=== PATIENT | female | born 1975 | race Hispanic/Latino ===

== ENCOUNTER 2016-12-21 20:15 | Emergency (ER) | payer OTHER ==
[2016-12-21] MEDS ORDERED: ONDANSETRON 4 MG ORAL DISINTEGRATING TAB (S0181) As Ordered ONE (21:04)
[2016-12-21 21:22] LABS: BASO % 0.2 % (0.0-1.0); EOS # 0.1 K/mm3 (0.0-0.50); EOS % 1.4 % (0.0-3.0); LARGE UNSTAINED CELL # 0.1 K/mm3 (0.0-0.4); LYMPH # 0.5 K/mm3 (1.5-4.5); LYMPH % 8.7 % (24.0-44.0); MEAN CORPUSCULAR HGB CONC 34.8 g/dl (32.0-36.5); MEAN CORPUSCULAR VOLUME 86.1 fl (80.0-96.0); MONO # 0.2 K/mm3 (0.0-0.8); MONO % 3.4 % (0.0-5.0); NEUTROPHILS # 4.9 K/mm3 (1.8-7.7); NEUTROPHILS % 85.4 % (36.0-66.0); PLATELET COUNT, AUTOMATED 268 k/mm3 (150-450); RED CELL DISTRIBUTION WIDTH 12.3 % (11.5-14.5); WHITE BLOOD COUNT 5.7 K/mm3 (4.0-10.0)
[2016-12-21 21:37] LABS: ANION GAP 9 MEQ/L (8-16); BLOOD UREA NITROGEN 7 MG/DL (7-18); CALCIUM LEVEL 8.8 MG/DL (8.5-10.1); CARBON DIOXIDE LEVEL 24 MEQ/L (21-32); CHLORIDE LEVEL 106 MEQ/L (98-107); CREATININE FOR GFR 0.73 MG/DL (0.55-1.02); GLOMERULAR FILTRATION RATE > 60.0 (>58); GLUCOSE, FASTING 98 MG/DL (70-105); POTASSIUM SERUM 4.1 MEQ/L (3.5-5.1); SODIUM LEVEL 139 MEQ/L (136-145)
--- NOTE | 2016-12-21 22:00 | REPUSA ---
Clinical history: Pain, swelling. Findings: The right common femoral, superficial femoral, popliteal, and other deep venous structures compress normally and demonstrate normal color Doppler flow. Normal venous waveforms with augmentatio n are seen. Impression: No evidence of deep vein thrombosis in the right femoral popliteal venous system.
--- NOTE | 2016-12-21 22:18 | EDDOCDS ---
Nurse's Notes [facility] Name: Melvina Vidal Age: 41 yrs Sex: Female : 1975 Arrival Date: 12/21/2016 Time: 20:15 Bed TR7 Private MD: Philip [facility] Diagnosis: Diarrhea, unspecified;Pain in right leg-MYOFASCIAL STRAIN Presentation: 12/21 20:23 Presenting complaint: Patient states: Diarrhea that began today with intermittent lf1 abdominal cramps and leg pain that is currently 7/10. Pt reports that she had feelings of nausea and took pepto and that has since resolved. Adult Sepsis Screening: The patient does not have new or worsening altered mentation. Patient's respiratory rate is less than 22. Systolic blood pressure is greater than 100. Patient has a qSOFA score of 0- Negative Sepsis Screen. Suicide/Homicide risk assessment- the patient denies having any suicidal and/or homicidal ideations and does not present with any other emotional, behavioral or mental health complaints. Status: The patient is a dependent. Transition of care: patient was not received from another setting of care. 20:23 Acuity: GET Level 4 lf1 20:23 Method Of Arrival: Walkin/Carried/Asstd lf1 Triage Assessment: 20:27 General: Appears in no apparent distress, comfortable, Behavior is cooperative. Pain: lf1 Location: right femoral area and right hip Pain currently is 7 out of 10 on a pain scale. Pain radiates to right leg. HIV screening NA for this visit Offered previously. Neurological: Level of Consciousness is awake, alert, Oriented to person, place, time. EENT: No deficits noted. Cardiovascular: Chest pain is denied. Respiratory: Respiratory effort is even, unlabored. GI: Reports diarrhea, nausea. : Denies burning with urination, urinary frequency, vaginal bleeding. Derm: Skin is normal. Injury Description: No known injury. 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 multivitamin Oral cap - PMHx: uterine fibroids; - PSHx: Tubal ligation; - Social history: Smoking status: Patient states was never smoker of tobacco. No barriers to communication noted, The patient speaks fluent Sinhala, Speaks appropriately for age, Preferred Language: Sinhala. - Family history: Not pertinent. - : The pt / caregiver states he / she is not on anticoagulants. Home medication list is obtained from the patient. - Exposure Risk Screening:: None identified. Screenin:29 Screening information is obtained from the patient. Fall risk: No risks identified. lf1 Assistance ADL's: requires no assistance with activities of daily living. Abuse/DV Screen: The patient / caregiver reports he/she is: not in a situation that causes fear, pain or injury. Nutritional screening: No deficits noted. Advance Directives: Currently, there is no health care proxy. home support is adequate. Assessment: 22:15 Reassessment: Patient appears in no apparent distress at this time. Patient states cz symptoms have improved. Vital Signs: 20:16 BP 120 / 63; Pulse 112; Resp 16; Temp 100.7(O); Pulse Ox 100% ; Weight 62.6 kg (R); lr2 Height 5 ft. (152.40 cm) (R); Pain 7/10; 22:13 BP 136 / 77; Pulse 99; Resp 18; Temp 100.3(TE); Pulse Ox 97% on R/A; Pain 7/10; ar3 20:16 Body Mass Index 26.95 (62.60 kg, 152.40 cm) lr2 Vitals: 20:16 Log In Time: December 21, 2016 at 20:15. lr2 ED Course: 20:16 Patient visited by Maria Eugenia Stephens. lr2 20:16 Patient moved to Waiting lr2 20:18 CHARO Palacios is Private Physician. lr2 20:18 Patient moved to Pre RCE lr2 20:26 Triage Initiated lf1 20:29 Patient moved to Triage 3 cz 20:30 Patient moved to Pre RCE cz 20:38 Patient moved to Triage 3 cz 20:54 [facility] Johnston [facility]-C [facility] ck7 20:54 Kelby Painter DO is Attending Physician. ck7 20:54 Patient visited by Emery Johnston RPA-C. ck7 21:08 Patient moved to TR1 ar3 21:08 Urine Culture Sent. ar3 21:08 UA Sent. ar3 21:08 MED Profile Sent. ar3 21:08 CBC with Diff Sent. ar3 21:13 Patient visited by Gayla Potter PCA. ar3 21:20 Patient moved to Ultrasound dmg 21:47 Patient moved to TR1 dmg 22:04 [facility] Payment Agreement was scanned into [employer] and attached to record. gjb 22:05 Patient visited by Emery Johnston RPA-C. ck7 22:[address] [facility] is Referral Physician. ck7 22:10 Patient moved to PR1 / 25 ar3 22:14 Patient visited by Gayla Potter PCA. ar3 22:15 Patient moved to TR7 cz 22:15 The patient / caregiver is instructed regarding the plan of care and ED course. cz 22:15 No IV's were initiated during this patient's visit. No procedures done that require cz assistance. Administered Medications: 21:06 Drug: Ondansetron ODT 4 mg [ondansetron 4 mg disintegrating tablet (1 tabs)] Route: PO; dsf Point of Care Testing: Urine : 21:13 hCG Reading: Negative; Control Reading: Positive; ar3 Ranges: Order Results: Lab Order: CBC with Diff; SPEC'M 12/21/16 21:08 Test: WHITE BLOOD COUNT; Value: 5.7; Range: 4.0-10.0; Units: K/mm3; Status: F Test: RED BLOOD COUNT; Value: 4.88; Range: 4.00-5.40; Units: M/mm3; Status: F Test: HEMOGLOBIN; Value: 14.6; Range: 12.0-16.0; Units: g/dl; Status: F Test: HEMATOCRIT; Value: 42.1; Range: 36.0-47.0; Units: %; Status: F Test: MEAN CORPUSCULAR VOLUME; Value: 86.1; Range: 80.0-96.0; Units: fl; Status: F Test: MEAN CORPUSCULAR HEMOGLOBIN; Value: 30.0; Range: 27.0-33.0; Units: pg; Status: F Test: MEAN CORPUSCULAR HGB CONC; Value: 34.8; Range: 32.0-36.5; Units: g/dl; Status: F Test: RED CELL DISTRIBUTION WIDTH; Value: 12.3; Range: 11.5-14.5; Units: %; Status: F Test: PLATELET COUNT, AUTOMATED; Value: 268; Range: 150-450; Units: k/mm3; Status: F Test: NEUTROPHILS %; Value: 85.4; Range: 36.0-66.0; Abnormal: Above high normal; Units: %; Status: F Test: LYMPH %; Value: 8.7; Range: 24.0-44.0; Abnormal: Below low normal; Units: %; Status: F Test: MONO %; Value: 3.4; Range: 0.0-5.0; Units: %; Status: F Test: EOS %; Value: 1.4; Range: 0.0-3.0; Units: %; Status: F Test: BASO %; Value: 0.2; Range: 0.0-1.0; Units: %; Status: F Test: LARGE UNSTAINED CELL %; Value: 1.0; Range: 0.0-4.0; Units: %; Status: F Test: NEUTROPHILS #; Value: 4.9; Range: 1.8-7.7; Units: K/mm3; Status: F Test: LYMPH #; Value: 0.5; Range: 1.5-4.5; Abnormal: Below low normal; Units: K/mm3; Status: F Test: MONO #; Value: 0.2; Range: 0.0-0.8; Units: K/mm3; Status: F Test: EOS #; Value: 0.1; Range: 0.0-0.50; Units: K/mm3; Status: F Test: BASO #; Value: 0.0; Range: 0.0-0.2; Units: K/mm3; Status: F Test: LARGE UNSTAINED CELL #; Value: 0.1; Range: 0.0-0.4; Units: K/mm3; Status: F Lab Order: MED Profile; SPECM 12/21/16 21:08 Test: GLUCOSE, FASTING; Value: 98; Range: 70-105; Units: MG/DL; Status: F Test: BLOOD UREA NITROGEN; Value: 7; Range: 7-18; Units: MG/DL; Status: F Test: CREATININE FOR GFR; Value: 0.73; Range: 0.55-1.02; Units: MG/DL; Status: F Test: GLOMERULAR FILTRATION RATE; Value: > 60.0; Range: >58; Status: F Test: SODIUM LEVEL; Value: 139; Range: 136-145; Units: MEQ/L; Status: F Test: POTASSIUM SERUM; Value: 4.1; Range: 3.5-5.1; Units: MEQ/L; Status: F Test: CHLORIDE LEVEL; Value: 106; Range: 98-107; Units: MEQ/L; Status: F Test: CARBON DIOXIDE LEVEL; Value: 24; Range: 21-32; Units: MEQ/L; Status: F Test: ANION GAP; Value: 9; Range: 8-16; Units: MEQ/L; Status: F Test: CALCIUM LEVEL; Value: 8.8; Range: 8.5-10.1; Units: MG/DL; Status: F Test Note: ; Units are mL/min/1.73 m2 Chronic Kidney Disease Staging per NKF: Stage I & II GFR >=60 Normal to Mildly Decreased Stage III GFR 30-59 Moderately Decreased Stage IV GFR 15-29 Severely Decreased Stage V GFR <15 Very Little GFR Left ESRD GFR <15 on VIDEO SOFTWARE ENGINEER Lab Order: UA; SPEC'M 12/21/16 21:03 Test: APPEARANCE, URINE; Value: CLEAR; Range: CLEAR; Status: F Test: COLOR, URINE; Value: YELLOW; Range: YELLOW; Status: F Test: PH,URINE; Value: 6.0; Range: 5.0-9.0; Units: UNITS; Status: F Test: SPECIFIC GRAVITY URINE AUTO; Value: 1.016; Range: 1.002-1.035; Status: F Test: PROTEIN, URINE AUTO; Value: NEGATIVE; Range: NEGATIVE; Units: mg/dL; Status: F Test: GLUCOSE, URINE (UA) AUTO; Value: NEGATIVE; Range: NEGATIVE; Units: mg/dL; Status: F Test: KETONE, URINE AUTO; Value: NEGATIVE; Range: NEGATIVE; Units: mg/dL; Status: F Test: UROBILINOGEN, URINE AUTO; Value: 0.2; Range: 0.0-2.0; Units: mg/dL; Status: F Test: BILIRUBIN, URINE AUTO; Value: NEGATIVE; Range: NEGATIVE; Status: F Test: NITRITE, URINE AUTO; Value: NEGATIVE; Range: NEGATIVE; Status: F Test: LEUKOCYTE ESTERASE, URINE AUTO; Value: TRACE; Range: NEGATIVE; Abnormal: Above high normal; Status: F Test: BLOOD, URINE BLOOD; Value: NEGATIVE; Range: NEGATIVE; Status: F Test: WBC, URINE AUTO; Value: 2; Range: 0-3; Units: /HPF; Status: F Test: RBC, URINE AUTO; Value: 2; Range: 0-3; Units: /HPF; Status: F Test: BACTERIA, URINE AUTO; Value: 1+; Range: NEGATIVE; Abnormal: Above high normal; Status: F Test: SQUAMOUS EPITHELIAL CELL UR AU; Value: 3; Range: 0-6; Units: /HPF; Status: F Test: MUCUS, URINE; Value: SMALL; Range: NEGATIVE; Status: F Test: HYALINE CAST, URINE AUTO; Value: 0; Range: 0-1; Units: /LPF; Status: F Outcome: 22:10 Discharge ordered by Provider. ck7 22:15 Discharge Assessment: Patient awake, alert and oriented x 3. No cognitive and/or cz functional deficits noted. Patient verbalized understanding of disposition instructions. patient administered narcotics - no. The following High Risk Discharge criteria are identified: None. Discharged to home ambulatory, with friend. Condition: stable. Discharge instructions given to patient, Instructed on discharge instructions, follow up and referral plans. medication usage, Demonstrated understanding of instructions, medications, Pt was receptive of discharge instructions/ teaching. Prescriptions given X 1. Property :Personal belongings accompany Pt. 22:16 Ultrasound Study completed. cz 22:16 Patient left the ED. cz Signatures: Harlan Zepeda RN RN Rowan Taylor LisaRN RN lf1 Gayla Potter, COIL WINDER COIL WINDER ar3 Roma Vargas,RN RN laurenf Emery Johnston, RPA-C RPA-Cck7 Mariana Schmitz Laura lr2 MTDD
--- NOTE | 2016-12-21 22:18 | EDDOCDS ---
Physician Documentation [facility] Name: Melvina Vidal Age: 41 yrs Sex: Female : 1975 Arrival Date: 12/21/2016 Time: 20:15 Bed TR7 Private MD: CHARO Palacios Disposition: 12/21/16 22:10 Discharged to Home/Self Care. Impression: Diarrhea, unspecified, Pain in right leg - MYOFASCIAL STRAIN. - Condition is Stable. - Discharge Instructions: Food Choices to Help Relieve Diarrhea, Adult, Diarrhea, Clear Liquid Diet, Muscle Strain. - Prescriptions for ZOFRAN ODT 4 mg - dissolve 1 tablet by ORAL route 4 times per day As needed do not chew, do not swallow whole; 10 tablet. - Medication Reconciliation, Local Pharmacy Hours form. - Follow up: CHARO Palacios; When: 1 - 2 days; Reason: Recheck today's complaints, Continuance of care. - Problem is new. - Symptoms have improved. - Notes: USE TYLENOL OR MOTRIN FOR LEG PAIN, RETURN TO THE ER IF THE SYMPTOMS WORSEN OR BECOME CONCERNING, FOLLOW UP WITH YOUR DOCTOR IN THE NEXT 2 DAYS Historical: - Allergies: PENICILLINS (Anaphylaxis, Hives); - Home Meds: 1. multivitamin Oral cap - PMHx: uterine fibroids; - PSHx: Tubal ligation; - Social history: Smoking status: Patient states was never smoker of tobacco. No barriers to communication noted, The patient speaks fluent Kinyarwanda, Speaks appropriately for age, Preferred Language: Kinyarwanda. - Family history: Not pertinent. - : The pt / caregiver states he / she is not on anticoagulants. Home medication list is obtained from the patient. - Exposure Risk Screening:: None identified. 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 (152.40 cm) (R); Pain 7/10; 22:13 BP 136 / 77; Pulse 99; Resp 18; Temp 100.3(TE); Pulse Ox 97% on R/A; Pain 7/10; ar3 20:16 Body Mass Index 26.95 (62.60 kg, 152.40 cm) lr2 MDM: 21:00 Ondansetron ODT Oral Disintegrating Tablet 4 mg PO once ordered. ck7 21:00 UCG by Nursing ordered. ck7 21:01 CBC with Diff Ordered. EDMS 21:01 MED Profile Ordered. EDMS 21:01 UA Ordered. EDMS 21:01 Urine Culture Ordered. EDMS 21:01 US Lower Extremity R/O DVT Ordered. EDMS 21:10 Financial registration complete. gjb 22: [facility] Payment Agreement was scanned into [employer] and attached to record. gjb 22: CBC with Diff Reviewed. ck7 22:05 UA Reviewed. ck7 22:05 MED Profile Reviewed. ck7 Point of Care Testing: Urine : 21:13 hCG Reading: Negative; Control Reading: Positive; ar3 Ranges: Administered Medications: 21:06 Drug: Ondansetron ODT 4 mg [ondansetron 4 mg disintegrating tablet (1 tabs)] Route: PO; dsf Signatures: Dispatcher [employer] EDHarlan Suresh, RN RN cz Abbie Alvarez RN RN lf1 Emery Johnston, RPA-C RPA-Cck7 Mariana Schmitz Desiree RN dsf The chart was reviewed and I authenticate all verbal orders and agree with the evaluation and treatment provided.Attachments: :04 [facility] Payment Agreement [facility] MTDD
--- NOTE | 2016-12-23 23:18 | EDDOCDS ---
Nurse's Notes [facility] Name: Melvina Vidal Age: 41 yrs Sex: Female : 1975 Arrival Date: 12/21/2016 Time: 20:15 Bed TR7 Private MD: Philip [facility] Diagnosis: Diarrhea, unspecified;Pain in right leg-MYOFASCIAL STRAIN Presentation: 12/21 20:23 Presenting complaint: Patient states: Diarrhea that began today with intermittent lf1 abdominal cramps and leg pain that is currently 7/10. Pt reports that she had feelings of nausea and took pepto and that has since resolved. Adult Sepsis Screening: The patient does not have new or worsening altered mentation. Patient's respiratory rate is less than 22. Systolic blood pressure is greater than 100. Patient has a qSOFA score of 0- Negative Sepsis Screen. Suicide/Homicide risk assessment- the patient denies having any suicidal and/or homicidal ideations and does not present with any other emotional, behavioral or mental health complaints. Status: The patient is a dependent. Transition of care: patient was not received from another setting of care. 20:23 Acuity: GET Level 4 lf1 20:23 Method Of Arrival: Walkin/Carried/Asstd lf1 Triage Assessment: 20:27 General: Appears in no apparent distress, comfortable, Behavior is cooperative. Pain: lf1 Location: right femoral area and right hip Pain currently is 7 out of 10 on a pain scale. Pain radiates to right leg. HIV screening NA for this visit Offered previously. Neurological: Level of Consciousness is awake, alert, Oriented to person, place, time. EENT: No deficits noted. Cardiovascular: Chest pain is denied. Respiratory: Respiratory effort is even, unlabored. GI: Reports diarrhea, nausea. : Denies burning with urination, urinary frequency, vaginal bleeding. Derm: Skin is normal. Injury Description: No known injury. 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 multivitamin Oral cap - PMHx: uterine fibroids; - PSHx: Tubal ligation; - Social history: Smoking status: Patient states was never smoker of tobacco. No barriers to communication noted, The patient speaks fluent Latvian, Speaks appropriately for age, Preferred Language: Latvian. - Family history: Not pertinent. - : The pt / caregiver states he / she is not on anticoagulants. Home medication list is obtained from the patient. - Exposure Risk Screening:: None identified. Screenin:29 Screening information is obtained from the patient. Fall risk: No risks identified. lf1 Assistance ADL's: requires no assistance with activities of daily living. Abuse/DV Screen: The patient / caregiver reports he/she is: not in a situation that causes fear, pain or injury. Nutritional screening: No deficits noted. Advance Directives: Currently, there is no health care proxy. home support is adequate. Assessment: 22:15 Reassessment: Patient appears in no apparent distress at this time. Patient states cz symptoms have improved. Vital Signs: 20:16 BP 120 / 63; Pulse 112; Resp 16; Temp 100.7(O); Pulse Ox 100% ; Weight 62.6 kg (R); lr2 Height 5 ft. (152.40 cm) (R); Pain 7/10; 22:13 BP 136 / 77; Pulse 99; Resp 18; Temp 100.3(TE); Pulse Ox 97% on R/A; Pain 7/10; ar3 20:16 Body Mass Index 26.95 (62.60 kg, 152.40 cm) lr2 Vitals: 20:16 Log In Time: December 21, 2016 at 20:15. lr2 ED Course: 20:16 Patient visited by Maria Eugenia Stephens. lr2 20:16 Patient moved to Waiting lr2 20:18 CHARO Palacios is Private Physician. lr2 20:18 Patient moved to Pre RCE lr2 20:26 Triage Initiated lf1 20:29 Patient moved to Triage 3 cz 20:30 Patient moved to Pre RCE cz 20:38 Patient moved to Triage 3 cz 20:54 [facility] ck7 20:54 Kelby Painter DO is Attending Physician. ck7 20:54 Patient visited by Emery Johnston RPA-C. ck7 21:08 Patient moved to TR1 ar3 21:08 Urine Culture Sent. ar3 21:08 UA Sent. ar3 21:08 MED Profile Sent. ar3 21:08 CBC with Diff Sent. ar3 21:13 Patient visited by Gayla Potter PCA. ar3 21:20 Patient moved to Ultrasound dmg 21:47 Patient moved to TR1 dmg 22:04 [facility] Payment Agreement was scanned into [employer] and attached to record. gjb 22:05 Patient visited by Emery Johnston RPA-C. ck7 22:09 Philip [facility] is Referral Physician. ck7 22:10 Patient moved to PR1 / 25 ar3 22:14 Patient visited by Gayla Potter PCA. ar3 22:15 Patient moved to TR7 cz 22:15 The patient / caregiver is instructed regarding the plan of care and ED course. cz 22:15 No IV's were initiated during this patient's visit. No procedures done that require cz assistance. 22:31 US Lower Extremity R/O DVT Returned. EDMS Administered Medications: 21:06 Drug: Ondansetron ODT 4 mg [ondansetron 4 mg disintegrating tablet (1 tabs)] Route: PO; dsf Point of Care Testing: Urine : 21:13 hCG Reading: Negative; Control Reading: Positive; ar3 Ranges: Order Results: Lab Order: CBC with Diff; SPEC'M 12/21/16 21:08 Test: WHITE BLOOD COUNT; Value: 5.7; Range: 4.0-10.0; Units: K/mm3; Status: F Test: RED BLOOD COUNT; Value: 4.88; Range: 4.00-5.40; Units: M/mm3; Status: F Test: HEMOGLOBIN; Value: 14.6; Range: 12.0-16.0; Units: g/dl; Status: F Test: HEMATOCRIT; Value: 42.1; Range: 36.0-47.0; Units: %; Status: F Test: MEAN CORPUSCULAR VOLUME; Value: 86.1; Range: 80.0-96.0; Units: fl; Status: F Test: MEAN CORPUSCULAR HEMOGLOBIN; Value: 30.0; Range: 27.0-33.0; Units: pg; Status: F Test: MEAN CORPUSCULAR HGB CONC; Value: 34.8; Range: 32.0-36.5; Units: g/dl; Status: F Test: RED CELL DISTRIBUTION WIDTH; Value: 12.3; Range: 11.5-14.5; Units: %; Status: F Test: PLATELET COUNT, AUTOMATED; Value: 268; Range: 150-450; Units: k/mm3; Status: F Test: NEUTROPHILS %; Value: 85.4; Range: 36.0-66.0; Abnormal: Above high normal; Units: %; Status: F Test: LYMPH %; Value: 8.7; Range: 24.0-44.0; Abnormal: Below low normal; Units: %; Status: F Test: MONO %; Value: 3.4; Range: 0.0-5.0; Units: %; Status: F Test: EOS %; Value: 1.4; Range: 0.0-3.0; Units: %; Status: F Test: BASO %; Value: 0.2; Range: 0.0-1.0; Units: %; Status: F Test: LARGE UNSTAINED CELL %; Value: 1.0; Range: 0.0-4.0; Units: %; Status: F Test: NEUTROPHILS #; Value: 4.9; Range: 1.8-7.7; Units: K/mm3; Status: F Test: LYMPH #; Value: 0.5; Range: 1.5-4.5; Abnormal: Below low normal; Units: K/mm3; Status: F Test: MONO #; Value: 0.2; Range: 0.0-0.8; Units: K/mm3; Status: F Test: EOS #; Value: 0.1; Range: 0.0-0.50; Units: K/mm3; Status: F Test: BASO #; Value: 0.0; Range: 0.0-0.2; Units: K/mm3; Status: F Test: LARGE UNSTAINED CELL #; Value: 0.1; Range: 0.0-0.4; Units: K/mm3; Status: F Lab Order: MED Profile; SPEC'M 12/21/16 21:08 Test: GLUCOSE, FASTING; Value: 98; Range: 70-105; Units: MG/DL; Status: F Test: BLOOD UREA NITROGEN; Value: 7; Range: 7-18; Units: MG/DL; Status: F Test: CREATININE FOR GFR; Value: 0.73; Range: 0.55-1.02; Units: MG/DL; Status: F Test: GLOMERULAR FILTRATION RATE; Value: > 60.0; Range: >58; Status: F Test: SODIUM LEVEL; Value: 139; Range: 136-145; Units: MEQ/L; Status: F Test: POTASSIUM SERUM; Value: 4.1; Range: 3.5-5.1; Units: MEQ/L; Status: F Test: CHLORIDE LEVEL; Value: 106; Range: 98-107; Units: MEQ/L; Status: F Test: CARBON DIOXIDE LEVEL; Value: 24; Range: 21-32; Units: MEQ/L; Status: F Test: ANION GAP; Value: 9; Range: 8-16; Units: MEQ/L; Status: F Test: CALCIUM LEVEL; Value: 8.8; Range: 8.5-10.1; Units: MG/DL; Status: F Test Note: ; Units are mL/min/1.73 m2 Chronic Kidney Disease Staging per NKF: Stage I & II GFR >=60 Normal to Mildly Decreased Stage III GFR 30-59 Moderately Decreased Stage IV GFR 15-29 Severely Decreased Stage V GFR <15 Very Little GFR Left ESRD GFR <15 on [employer] Lab Order: UA; SPEC'M 12/21/16 21:03 Test: APPEARANCE, URINE; Value: CLEAR; Range: CLEAR; Status: F Test: COLOR, URINE; Value: YELLOW; Range: YELLOW; Status: F Test: PH,URINE; Value: 6.0; Range: 5.0-9.0; Units: UNITS; Status: F Test: SPECIFIC GRAVITY URINE AUTO; Value: 1.016; Range: 1.002-1.035; Status: F Test: PROTEIN, URINE AUTO; Value: NEGATIVE; Range: NEGATIVE; Units: mg/dL; Status: F Test: GLUCOSE, URINE (UA) AUTO; Value: NEGATIVE; Range: NEGATIVE; Units: mg/dL; Status: F Test: KETONE, URINE AUTO; Value: NEGATIVE; Range: NEGATIVE; Units: mg/dL; Status: F Test: UROBILINOGEN, URINE AUTO; Value: 0.2; Range: 0.0-2.0; Units: mg/dL; Status: F Test: BILIRUBIN, URINE AUTO; Value: NEGATIVE; Range: NEGATIVE; Status: F Test: NITRITE, URINE AUTO; Value: NEGATIVE; Range: NEGATIVE; Status: F Test: LEUKOCYTE ESTERASE, URINE AUTO; Value: TRACE; Range: NEGATIVE; Abnormal: Above high normal; Status: F Test: BLOOD, URINE BLOOD; Value: NEGATIVE; Range: NEGATIVE; Status: F Test: WBC, URINE AUTO; Value: 2; Range: 0-3; Units: /HPF; Status: F Test: RBC, URINE AUTO; Value: 2; Range: 0-3; Units: /HPF; Status: F Test: BACTERIA, URINE AUTO; Value: 1+; Range: NEGATIVE; Abnormal: Above high normal; Status: F Test: SQUAMOUS EPITHELIAL CELL UR AU; Value: 3; Range: 0-6; Units: /HPF; Status: F Test: MUCUS, URINE; Value: SMALL; Range: NEGATIVE; Status: F Test: HYALINE CAST, URINE AUTO; Value: 0; Range: 0-1; Units: /LPF; Status: F Lab Order: Urine Culture; SPEC'M 12/21/16 21:03 Test: URINE CULTURE; Value: <EXTERNAL COMMENT eCWMed> FULL REPORT IN LAB NOTES (eCW and Medent).; Status: F Test: URINE CULTURE; Value: URINE CULTURE RESULT NO GROWTH; Status: F Radiology Order: US Lower Extremity R/O DVT Test: US Lower Extremity R/O DVT REASON FOR EXAMINATION: Deformity/Swelling; ; Clinical history: Pain, swelling.; Findings: The right common femoral, superficial femoral, popliteal, and other deep venous structures; compress normally and demonstrate normal color Doppler flow. Normal venous waveforms with augmentatio; n are seen.; Impression:; No evidence of deep vein thrombosis in the right femoral popliteal venous system.; ; Outcome: 22:10 Discharge ordered by Provider. ck7 22:15 Discharge Assessment: Patient awake, alert and oriented x 3. No cognitive and/or cz functional deficits noted. Patient verbalized understanding of disposition instructions. patient administered narcotics - no. The following High Risk Discharge criteria are identified: None. Discharged to home ambulatory, with friend. Condition: stable. Discharge instructions given to patient, Instructed on discharge instructions, follow up and referral plans. medication usage, Demonstrated understanding of instructions, medications, Pt was receptive of discharge instructions/ teaching. Prescriptions given X 1. Property :Personal belongings accompany Pt. 22:16 Ultrasound Study completed. cz 22:16 Patient left the ED. cz Signatures: Dispatcher [employer] EDHarlan Suresh, RN RN fidencio Fraga, Abbie ContrerasRN RN lf1 Gayla Potter, PSYCHIATRIC LPN PSYCHIATRIC LPN ar3 Roma VargasRN RN dsf Emery Johnston, RPA-C RPA-Cck7 Mariana Schmitz Laura lr2 Chart Complete MTDD
--- NOTE | 2016-12-23 23:18 | EDDOCDS ---
Physician Documentation [facility] Name: Melvina Vidal Age: 41 yrs Sex: Female : 1975 Arrival Date: 12/21/2016 Time: 20:15 Bed TR7 Private MD: CHARO Palacios Disposition: 12/21/16 22:10 Discharged to Home/Self Care. Impression: Diarrhea, unspecified, Pain in right leg - MYOFASCIAL STRAIN. - Condition is Stable. - Discharge Instructions: Food Choices to Help Relieve Diarrhea, Adult, Diarrhea, Clear Liquid Diet, Muscle Strain. - Prescriptions for ZOFRAN ODT 4 mg - dissolve 1 tablet by ORAL route 4 times per day As needed do not chew, do not swallow whole; 10 tablet. - Medication Reconciliation, Local Pharmacy Hours form. - Follow up: CHARO Palacios; When: 1 - 2 days; Reason: Recheck today's complaints, Continuance of care. - Problem is new. - Symptoms have improved. - Notes: USE TYLENOL OR MOTRIN FOR LEG PAIN, RETURN TO THE ER IF THE SYMPTOMS WORSEN OR BECOME CONCERNING, FOLLOW UP WITH YOUR DOCTOR IN THE NEXT 2 DAYS Historical: - Allergies: PENICILLINS (Anaphylaxis, Hives); - Home Meds: 1. multivitamin Oral cap - PMHx: uterine fibroids; - PSHx: Tubal ligation; - Social history: Smoking status: Patient states was never smoker of tobacco. No barriers to communication noted, The patient speaks fluent Uzbek, Speaks appropriately for age, Preferred Language: Uzbek. - Family history: Not pertinent. - : The pt / caregiver states he / she is not on anticoagulants. Home medication list is obtained from the patient. - Exposure Risk Screening:: None identified. 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 (152.40 cm) (R); Pain 7/10; 22:13 BP 136 / 77; Pulse 99; Resp 18; Temp 100.3(TE); Pulse Ox 97% on R/A; Pain 7/10; ar3 20:16 Body Mass Index 26.95 (62.60 kg, 152.40 cm) lr2 MDM: 21:00 Ondansetron ODT Oral Disintegrating Tablet 4 mg PO once ordered. ck7 21:00 UCG by Nursing ordered. ck7 21:01 CBC with Diff Ordered. EDMS 21:01 MED Profile Ordered. EDMS 21:01 UA Ordered. EDMS 21:01 Urine Culture Ordered. EDMS 21:01 US Lower Extremity R/O DVT Ordered. EDMS 21:10 Financial registration complete. gjb 22:04 [facility] Payment Agreement was scanned into [employer] and attached to record. gjb 22:05 CBC with Diff Reviewed. ck7 22:05 UA Reviewed. ck7 22:05 MED Profile Reviewed. ck7 Point of Care Testing: Urine : 21:13 hCG Reading: Negative; Control Reading: Positive; ar3 Ranges: Administered Medications: 21:06 Drug: Ondansetron ODT 4 mg [ondansetron 4 mg disintegrating tablet (1 tabs)] Route: PO; dsf Signatures: Dispatcher [employer] Harlan Adhikari, RN RN cz Abbie Alvarez RN RN lf1 Emery Johnston, RPA-C RPA-Cck7 Mariana Schmitz Desiree RN dsf The chart was reviewed and I authenticate all verbal orders and agree with the evaluation and treatment provided.Attachments: 22:04 [facility] Payment Agreement [facility] Chart Complete MTDD
--- NOTE | 2016-12-23 23:18 | EDDOCDS ---
Physician Documentation [facility] Name: Melvina Vidal Age: 41 yrs Sex: Female : 1975 Arrival Date: 12/21/2016 Time: 20:15 Bed TR7 Private MD: CHARO Palacios Disposition: 12/21/16 22:10 Discharged to Home/Self Care. Impression: Diarrhea, unspecified, Pain in right leg - MYOFASCIAL STRAIN. - Condition is Stable. - Discharge Instructions: Food Choices to Help Relieve Diarrhea, Adult, Diarrhea, Clear Liquid Diet, Muscle Strain. - Prescriptions for ZOFRAN ODT 4 mg - dissolve 1 tablet by ORAL route 4 times per day As needed do not chew, do not swallow whole; 10 tablet. - Medication Reconciliation, Local Pharmacy Hours form. - Follow up: CHARO Palacios; When: 1 - 2 days; Reason: Recheck today's complaints, Continuance of care. - Problem is new. - Symptoms have improved. - Notes: USE TYLENOL OR MOTRIN FOR LEG PAIN, RETURN TO THE ER IF THE SYMPTOMS WORSEN OR BECOME CONCERNING, FOLLOW UP WITH YOUR DOCTOR IN THE NEXT 2 DAYS Historical: - Allergies: PENICILLINS (Anaphylaxis, Hives); - Home Meds: 1. multivitamin Oral cap - PMHx: uterine fibroids; - PSHx: Tubal ligation; - Social history: Smoking status: Patient states was never smoker of tobacco. No barriers to communication noted, The patient speaks fluent Lao, Speaks appropriately for age, Preferred Language: Lao. - Family history: Not pertinent. - : The pt / caregiver states he / she is not on anticoagulants. Home medication list is obtained from the patient. - Exposure Risk Screening:: None identified. 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 (152.40 cm) (R); Pain 7/10; 22:13 BP 136 / 77; Pulse 99; Resp 18; Temp 100.3(TE); Pulse Ox 97% on R/A; Pain 7/10; ar3 20:16 Body Mass Index 26.95 (62.60 kg, 152.40 cm) lr2 MDM: 21:00 Ondansetron ODT Oral Disintegrating Tablet 4 mg PO once ordered. ck7 21:00 UCG by Nursing ordered. ck7 21:01 CBC with Diff Ordered. EDMS 21:01 MED Profile Ordered. EDMS 21:01 UA Ordered. EDMS 21:01 Urine Culture Ordered. EDMS 21:01 US Lower Extremity R/O DVT Ordered. EDMS 21:10 Financial registration complete. gjb 22:04 [facility] Payment Agreement was scanned into [employer] and attached to record. gjb 22:05 CBC with Diff Reviewed. ck7 22:05 UA Reviewed. ck7 22:05 MED Profile Reviewed. ck7 Point of Care Testing: Urine : 21:13 hCG Reading: Negative; Control Reading: Positive; ar3 Ranges: Administered Medications: 21:06 Drug: Ondansetron ODT 4 mg [ondansetron 4 mg disintegrating tablet (1 tabs)] Route: PO; dsf Signatures: Dispatcher [employer] Harlan Adhikari, RN RN cz Abbie Alvarez RN RN lf1 Emery Johnston, RPA-C RPA-Cck7 Mariana Schmitz Desiree RN dsf The chart was reviewed and I authenticate all verbal orders and agree with the evaluation and treatment provided.Attachments: 22:04 [facility] Payment Agreement [facility] Chart Complete MTDD
== END 2016-12-21 22:16 | disposition home or self-care (01) ==
LOC: M ED 20:15
DX: R19.7 Diarrhea, unspecified (principal); M79.651 Pain in right thigh; Z88.0 Allergy status to penicillin

== ENCOUNTER → 2017-09-08 | Outpatient (CLI) | payer OTHER | LOC: M WHC 15:08 | PROVIDERS: ATTEND Family Medicine | DX: Z12.31 Encounter for screening mammogram for malignant neoplasm of breast (principal) ==

== ENCOUNTER → 2017-11-27 | Outpatient (REF) | payer OTHER | LOC: M SFHCLERA 14:06 | DX: J02.9 Acute pharyngitis, unspecified (principal) ==

== ENCOUNTER → 2018-01-01 | Outpatient (REF) | payer OTHER ==
[2018-01-01 21:04] LABS: CHLAMYDIA DNA AMPLIFICATION NEGATIVE (NEGATIVE); GC DNA AMPLIFICATION NEGATIVE (NEGATIVE)
== END ==
LOC: M SFHCLERA 17:34
DX: R30.0 Dysuria (principal)
CPT/HCPCS: 87186

== ENCOUNTER 2018-01-05 11:38 | Emergency (ER) | payer OTHER ==
[2018-01-05 12:58] LABS: KETONE, URINE AUTO RFX TRACE mg/dL (NEGATIVE); LEUKOCYTE ESTERASE UR AUTO RFX NEGATIVE (NEGATIVE); NITRITE, URINE AUTO RFX NEGATIVE (NEGATIVE); RBC, URINE AUTO RFX 0 /HPF (0-3); SPECIFIC GRAVITY UR AUTO RFX 1.003 (1.002-1.035); SQUAM EPITHELIAL CELL UR AURFX 0 /HPF (0-6); WBC, URINE AUTO RFX 0 /HPF (0-3)
[2018-01-05 13:14] LABS: CONTROL LINE UCG INT CTR LINE PRESENT; URINE PREG TEST NEGATIVE (NEGATIVE)
[2018-01-05] MEDS: NS 1,000 ML IV (13:51)
[2018-01-05] MEDS: KETOROLAC 30 MG/ML VIAL (J1885) IV (13:51)
[2018-01-05 13:55] LABS: BASO # 0.1 10^3/uL (0.0-0.2); BASO % 0.7 % (0.0-1.0); EOS # 0.4 10^3/uL (0.0-0.50); EOS % 5.2 % (0.0-3.0); HEMATOCRIT 42.1 % (36.0-47.0); HEMOGLOBIN 14.2 g/dl (12.0-16.0); IMMATURE GRANULOCYTE % 0.4 % (0-3.0); LYMPH # 1.5 10^3/uL (1.5-4.5); MEAN CORPUSCULAR HGB CONC 33.7 g/dl (32.0-36.5); MEAN CORPUSCULAR VOLUME 86.1 fl (80.0-96.0); MONO # 0.4 10^3/uL (0.0-0.8); MONO % 5.2 % (0.0-5.0); NEUTROPHILS # 4.5 10^3/uL (1.8-7.7); NEUTROPHILS % 66.5 % (36.0-66.0); PLATELET COUNT, AUTOMATED 344 10^3/uL (150-450); RED BLOOD COUNT 4.89 10^6/uL (4.00-5.40); RED CELL DISTRIBUTION WIDTH 12.3 % (11.5-14.5); WHITE BLOOD COUNT 6.8 10^3/uL (4.0-10.0)
[2018-01-05 14:03] LABS: ANION GAP 6 MEQ/L (8-16); BLOOD UREA NITROGEN 10 MG/DL (7-18); CALCIUM LEVEL 9.6 MG/DL (8.5-10.1); CARBON DIOXIDE LEVEL 28 MEQ/L (21-32); CHLORIDE LEVEL 105 MEQ/L (98-107); CREATININE FOR GFR 0.64 MG/DL (0.55-1.30); GLOMERULAR FILTRATION RATE > 60.0 (>58); GLUCOSE, FASTING 81 MG/DL (70-100); POTASSIUM SERUM 3.8 MEQ/L (3.5-5.1); SODIUM LEVEL 139 MEQ/L (136-145)
[2018-01-05] MEDS: MORPHINE 2 MG/ML 1ML SYRINGE (J2270) IV (14:37)
== END 2018-01-05 15:10 | disposition home or self-care (01) ==
LOC: M ED 11:38
DX: M54.42 Lumbago with sciatica, left side (principal); N30.00 Acute cystitis without hematuria; Z79.899 Other long term (current) drug therapy; Z88.0 Allergy status to penicillin
CPT/HCPCS: J1885

== ENCOUNTER 2018-01-07 12:22 | Emergency (ER) | payer OTHER ==
[2018-01-07 15:59] LABS: BASO # 0.1 10^3/uL (0.0-0.2); BASO % 0.6 % (0.0-1.0); EOS # 0.5 10^3/uL (0.0-0.50); EOS % 4.4 % (0.0-3.0); HEMATOCRIT 43.9 % (36.0-47.0); HEMOGLOBIN 14.5 g/dl (12.0-16.0); IMMATURE GRANULOCYTE % 0.3 % (0-3.0); LYMPH # 1.9 10^3/uL (1.5-4.5); LYMPH % 17.4 % (24.0-44.0); MEAN CORPUSCULAR HEMOGLOBIN 28.7 pg (27.0-33.0); MEAN CORPUSCULAR VOLUME 86.9 fl (80.0-96.0); MONO # 0.7 10^3/uL (0.0-0.8); MONO % 6.1 % (0.0-5.0); NEUTROPHILS # 7.6 10^3/uL (1.8-7.7); NEUTROPHILS % 71.2 % (36.0-66.0); PLATELET COUNT, AUTOMATED 365 10^3/uL (150-450); RED BLOOD COUNT 5.05 10^6/uL (4.00-5.40); RED CELL DISTRIBUTION WIDTH 12.2 % (11.5-14.5); WHITE BLOOD COUNT 10.7 10^3/uL (4.0-10.0)
[2018-01-07] MEDS: KETOROLAC 30 MG/ML VIAL (J1885) IV (16:01)
[2018-01-07] MEDS: NS 1,000 ML IV (16:01)
[2018-01-07 16:21] LABS: ANION GAP 12 MEQ/L (8-16); BLOOD UREA NITROGEN 12 MG/DL (7-18); CALCIUM LEVEL 9.5 MG/DL (8.5-10.1); CARBON DIOXIDE LEVEL 22 MEQ/L (21-32); CHLORIDE LEVEL 106 MEQ/L (98-107); CREATININE FOR GFR 0.67 MG/DL (0.55-1.30); GLOMERULAR FILTRATION RATE > 60.0 (>58); GLUCOSE, FASTING 79 MG/DL (70-100); POTASSIUM SERUM 4.2 MEQ/L (3.5-5.1); SODIUM LEVEL 140 MEQ/L (136-145)
== END 2018-01-07 17:46 | disposition home or self-care (01) ==
LOC: M ED 12:22
DX: M54.41 Lumbago with sciatica, right side (principal); M51.36 Other intervertebral disc degeneration, lumbar region; M51.27 Other intervertebral disc displacement, lumbosacral region; Z87.440 Personal history of urinary (tract) infections; Z88.0 Allergy status to penicillin; Z79.899 Other long term (current) drug therapy; Z79.1 Long term (current) use of non-steroidal anti-inflammatories (NSAID)
CPT/HCPCS: J1885

== ENCOUNTER → 2018-11-21 | Outpatient (REF) | payer OTHER ==
[~2018-11-21] MED LIST: CYCL10TA PO; NAPR-50 PO; NITR100C2; PERC5TAB12 PO
== END ==
LOC: M SFHCLERA 12:33
PROVIDERS: ATTEND Nurse Practitioner Family
DX: R39.89 Other symptoms and signs involving the genitourinary system (principal)

== ENCOUNTER → 2019-03-14 | Outpatient (CLI) | payer OTHER ==
[~2019-03-14] MED LIST changes: -NAPR-50 PO; +NAPR-837 PO
--- NOTE | 2019-03-14 15:00 | REPMRS ---
Patient History The patient states she has not had a clinical breast exam in over a year. Family history of endometrial cancer under age 50 in paternal cousin. Benign excisional biopsy of the right breast, 2010. No Hormone Replacement Therapy Digital Woman Screen Mammo: March 14, 2019 - Exam #: [id number] Bilateral CC and MLO view(s) were taken. Technologist: Jennifer Daniel, Technologist Prior study comparison: September 08, 2017, digital woman screen mammo performed at [facility]. 2014, digital bilateral screening mammo, [facility]. FINDINGS: The breast tissue is extremely dense which could obscure a lesion on mammography. There is no evidence of cancer on this mammogram. Assessment: BI-RADS/ACR category 2 mammogram. Benign Findings. Recommendation Routine screening mammogram of both breasts in 1 year (for women over age 40). This mammogram was interpreted with the aid of an FDA-approved computer-aided dectection system. Electronically Signed By: Craig Murillo MD 03/14/19 1500
== END ==
LOC: M WHC 13:56
PROVIDERS: ATTEND Student in an Organized Health Care Education/Training Program
DX: Z12.31 Encounter for screening mammogram for malignant neoplasm of breast (principal)

== ENCOUNTER 2023-05-11 14:09 | Emergency (ER) | payer OTHER ==
[~2023-05-11] VITALS: Ht 152.4 cm; Wt 63.2 kg
[~2023-05-11 14:09] MED LIST changes: +CYCL-707 PO; -CYCL10TA PO
[2023-05-11] MEDS ORDERED: MENT118S2 TP (16:48)
[2023-05-11] MEDS ORDERED: DICL20GE TP (16:48)
[2023-05-11 16:55] VITALS: BP 120/76; TEMP 97.9; O2SAT 100
== END 2023-05-11 17:11 | disposition home or self-care (01) ==
LOC: M ED 14:09
DX: S49.91XA Unspecified injury of right shoulder and upper arm, initial encounter (principal); W19.XXXA Unspecified fall, initial encounter; Y99.0 Civilian activity done for income or pay; Z88.0 Allergy status to penicillin; Z79.899 Other long term (current) drug therapy

== ENCOUNTER → 2023-06-18 | Outpatient (CLI) | payer OTHER ==
[~2023-06-18] MED LIST changes: +DICL20GE TP; +MENT118S2 TP
== END ==
LOC: M WHC 13:00
PROVIDERS: ATTEND Nurse Practitioner Primary Care
DX: Z12.31 Encounter for screening mammogram for malignant neoplasm of breast (principal)

== ENCOUNTER 2023-12-08 07:17 | Day surgery (SDC) | payer OTHER ==
[~2023-12-08] VITALS: Ht 152.4 cm; Wt 62.9 kg
[~2023-12-08 07:17] MED LIST changes: +VITA-243 PO
[2023-12-08] MEDS ORDERED: PERC5TAB12 PO (07:33)
[2023-12-08 08:00] LABS: HEMATOCRIT 42.5 % (36.0-47.0); HEMOGLOBIN 14.2 g/dl (12.0-15.5); MEAN CORPUSCULAR HEMOGLOBIN 28.7 pg (27.0-33.0); MEAN CORPUSCULAR HGB CONC 33.4 g/dl (32.0-36.5); MEAN CORPUSCULAR VOLUME 85.9 fl (80.0-96.0); PLATELET COUNT, AUTOMATED 353 10^3/uL (150-450); RED BLOOD COUNT 4.95 10^6/uL (4.00-5.40)
[2023-12-08 08:23] LABS: BLOOD UREA NITROGEN 9 MG/DL (9-23); CALCIUM LEVEL 9.4 MG/DL (8.5-10.1); CARBON DIOXIDE LEVEL 28 MMOL/L (20-31); CHLORIDE LEVEL 108 MMOL/L (98-107); CREATININE FOR GFR 0.65 MG/DL (0.55-1.30); GLOMERULAR FILTRATION RATE > 60.0 (>58); GLUCOSE, FASTING 89 MG/DL (60-100); POTASSIUM SERUM 4.2 MMOL/L (3.5-5.1); SODIUM LEVEL 140 MMOL/L (136-145)
[2023-12-08] MEDS ORDERED: fentaNYL 100 MCG/2 ML INJECTION As Ordered ONE (08:24)
[2023-12-08] MEDS ORDERED: MIDAZOLAM INJ 2MG/2ML VIAL As Ordered ONE (08:25)
[2023-12-08] MEDS ORDERED: LIDOCAINE 2% 100MG/5ML SDV (FOR ANES.) As Ordered ONE (08:26)
[2023-12-08] MEDS ORDERED: ROCURONIUM BROMIDE 50MG/5ML VIAL As Ordered ONE (08:26)
[2023-12-08] MEDS ORDERED: KETOROLAC 60MG 2ML VIAL As Ordered ONE (08:26)
[2023-12-08] MEDS ORDERED: SUGAMMADEX SODIUM 500 MG/5 ML VIAL (BRIDION) As Ordered ONE (08:26)
[2023-12-08] MEDS ORDERED: propofoL 200 MG/20 ML VIAL As Ordered ONE (08:26)
[2023-12-08] MEDS ORDERED: ONDANSETRON 4MG 2ML VIAL As Ordered ONE (08:26)
[2023-12-08] MEDS ORDERED: LR 1,000 ML IV SCH ×2 (08:35→12:00)
[2023-12-08] MEDS: SCOPOLAMINE 1MG TRANSDERMAL PATCH TOP ONE (08:40)
[2023-12-08] MEDS ORDERED: FLUORESCEIN 10% (100MG/ML) 5ML VIAL As Ordered ONE (09:25)
[2023-12-08] MEDS ORDERED: ceFAZolin 2 GM/D5W 50 ML IV BAG As Ordered ONE (09:34)
[2023-12-08] MEDS: ceFAZolin SOD 2 GM in IV 1 EA IV ONE (09:40)
[2023-12-08] MEDS ORDERED: ONDANSETRON 4MG 2ML VIAL IV PRN (10:55)
[2023-12-08] MEDS ORDERED: fentaNYL 100 MCG/2 ML INJECTION IV PRN (10:55)
[2023-12-08] MEDS: oxyCODONE 5MG TAB PO PRN (11:32)
[2023-12-08] MEDS ORDERED: PERCOCET 5MG/325MG TAB PO PRN (11:40)
[2023-12-08] MEDS ORDERED: SIMETHICONE 80MG CHEW TAB PO SCH (12:00)
[2023-12-08 13:15] VITALS: BP 120/76; TEMP 98.2; O2SAT 95
[2023-12-08] MEDS ORDERED: IBUPROFEN 800 MG TAB PO SCH (19:00)
== END 2023-12-08 13:45 | disposition home or self-care (01) ==
LOC: M SDC 07:17
PROVIDERS: ATTEND Obstetrics & Gynecology
DX: N92.0 Excessive and frequent menstruation with regular cycle (principal); D25.9 Leiomyoma of uterus, unspecified; E78.5 Hyperlipidemia, unspecified; R51.9 Headache, unspecified; Z88.0 Allergy status to penicillin
CPT/HCPCS: 36415; 58571; 80048; 81025; 85027; 86850; 86900; 86901; 88307; J0665; J0690; J1100; J1885; J2250; J2405; J3010; S2900

== ENCOUNTER 2024-11-02 11:47 | Day surgery (SDC) | payer OTHER ==
[~2024-11-02] VITALS: Ht 152.4 cm; Wt 59.9 kg
[~2024-11-02 11:47] MED LIST changes: +ESTR1DIS3; +LIDOCAINE 2% 100MG/5ML SDV (FOR ANES.) As Ordered ONE; +SERT25TA21 PO; +[UNRECOGNIZED DRUG - OTHER]; +propofoL 200 MG/20 ML VIAL As Ordered ONE
[2024-11-02 14:17] VITALS: TEMP 98.2
[2024-11-02 14:35] VITALS: BP 129/85; O2SAT 98
== END 2024-11-02 14:38 | disposition home or self-care (01) ==
LOC: M OPP 11:47
PROVIDERS: ATTEND Surgery
DX: Z12.11 Encounter for screening for malignant neoplasm of colon (principal); Z88.0 Allergy status to penicillin; Z79.899 Other long term (current) drug therapy